=== PATIENT | female | born 1960 | race Caucasian/White ===

== ENCOUNTER 2016-06-18 07:48 | Emergency (ER) | payer OTHER ==
[~2016-06-18] VITALS: Ht 165.1 cm; Wt 86.0 kg
[2016-06-18 07:50] VITALS: BP 147/84; PULSE 98; RESP 20; TEMP 97.8; O2SAT 98
--- NOTE | 2016-06-18 08:15 | PD ---
HPI Chief Complaint: Abdominal Pain Time Seen by Provider: 08:15 Travel History International Travel<30 days: No Contact w/Intl Traveler<30days: No Traveled to known affect area: No History of Present Illness HPI 56-year-old female came to the emergency room with her with severe right upper quadrant pain that started early this morning. Patient says it has been continuous since then. Although right now she said the pain is getting little better and it is 3 out of 10. It first started it was 7 out of 10. It is underneath her right rib cage with no radiation. She has never had this pain before but she does have her gallbladder still. No history of nausea vomiting. She had a bowel movement this morning which was her usual. Vital signs were relatively stable. Patient says she has not seen a doctor in couple years and is not on any medications. [facility] Past Medical History Narrative Medical List of her past medical, surgical, social and family history was reviewed from the nursing note. Hx Anticoagulant Therapy: No Cardiovascular Problems: No Chemotherapy: No Cerebrovascular Accident: No Diabetes: No Hypertension: Yes Respiratory: No Tetanus Vaccination: > 5 Years Past Surgical History Hysterectomy: No Social History Alcohol Use: No Tobacco Use: Yes Substance Use: No Allergies-Medications (Allergen,Severity, Reaction): Coded Allergies: Bee Sting (Verified Allergy, Unknown, Swelling, 06/18/16) Comments List of her allergies reviewed from the nursing note. Reported Meds & Prescriptions Reported Meds & Active Scripts Active No Active Prescriptions or Reported Medications Narrative Medication List of her home medications reviewed from the nursing note. Review of Systems Except as stated in HPI: all other systems reviewed are Neg Physical Exam Narrative GENERAL: Awake, alert, no obvious distress SKIN: Focused skin assessment warm/dry. HEAD: Atraumatic. Normocephalic. EYES: Pupils equal and round. No scleral icterus. No injection or drainage. ENT: No nasal bleeding or discharge. Mucous membranes pink and moist. NECK: Trachea midline. No JVD. CARDIOVASCULAR: Regular rate and rhythm. No murmur appreciated. RESPIRATORY: No accessory muscle use. Clear to auscultation. Breath sounds equal bilaterally. GASTROINTESTINAL: Abdomen soft, non-tender, nondistended. Hepatic and splenic margins not palpable. MUSCULOSKELETAL: No obvious deformities. No clubbing. No cyanosis. No edema. NEUROLOGICAL: Awake and alert. No obvious cranial nerve deficits. Motor grossly within normal limits. Normal speech. PSYCHIATRIC: Appropriate mood and affect; insight and judgment normal. Data Data Last Documented VS Vital Signs Date Time Temp Pulse Resp B/P Pulse Ox O2 Delivery O2 Flow Rate FiO2 06/18/16 09:45 69 17 132/88 98 06/18/16 08:43 Room Air 06/18/16 07:50 97.8 Orders Complete Blood Count With Diff (06/18/16 08:18) Comprehensive Metabolic Panel (06/18/16 08:18) Lipase (06/18/16 08:18) Urinalysis - C+S If Indicated (06/18/16 08:18) Iv Access Insert/Monitor (06/18/16 08:18) Ecg Monitoring (06/18/16 08:18) Oximetry (06/18/16 08:18) Sodium Chloride 0.9% Flush (Ns Flush) (06/18/16 08:30) Electrocardiogram (06/18/16 08:18) Ed Poc Ultrasound (06/18/16 08:18) Ct Abd/Pel W/O Iv Contrast (06/18/16 ) Labs Laboratory Tests Test 06/18/16 06/18/16 08:34 08:35 White Blood Count 14.9 TH/MM3 Red Blood Count 5.19 MIL/MM3 Hemoglobin 14.9 GM/DL Hematocrit 43.7 % Mean Corpuscular Volume 84.1 FL Mean Corpuscular Hemoglobin 28.7 PG Mean Corpuscular Hemoglobin 34.1 % Concent Red Cell Distribution Width 14.2 % Platelet Count 358 TH/MM3 Mean Platelet Volume 8.5 FL Neutrophils (%) (Auto) 76.7 % Lymphocytes (%) (Auto) 15.1 % Monocytes (%) (Auto) 6.3 % Eosinophils (%) (Auto) 1.7 % Basophils (%) (Auto) 0.2 % Neutrophils # (Auto) 11.4 TH/MM3 Lymphocytes # (Auto) 2.3 TH/MM3 Monocytes # (Auto) 0.9 TH/MM3 Eosinophils # (Auto) 0.3 TH/MM3 Basophils # (Auto) 0.0 TH/MM3 CBC Comment DIFF FINAL Differential Comment Sodium Level 134 MEQ/L Potassium Level 3.8 MEQ/L Chloride Level 98 MEQ/L Carbon Dioxide Level 29.7 MEQ/L Anion Gap 6 MEQ/L Blood Urea Nitrogen 15 MG/DL Creatinine 0.90 MG/DL Estimat Glomerular Filtration 64 ML/MIN Rate Random Glucose 89 MG/DL Calcium Level 9.6 MG/DL Total Bilirubin 1.0 MG/DL Aspartate Amino Transf 163 U/L (AST/SGOT) Alanine Aminotransferase 99 U/L (ALT/SGPT) Alkaline Phosphatase 144 U/L Total Protein 8.0 GM/DL Albumin 4.1 GM/DL Lipase 152 U/L Urine Color YELLOW Urine Turbidity CLEAR Urine pH 6.0 Urine Specific [place] 1.007 Urine Protein NEG mg/dL Urine Glucose (UA) NEG mg/dL Urine Ketones NEG mg/dL Urine Occult Blood NEG Urine Nitrite NEG Urine Bilirubin NEG Urine Urobilinogen LESS THAN 2.0 MG/DL Urine Leukocyte Esterase NEG Urine RBC 1 /hpf Urine WBC 1 /hpf Urine Squamous Epithelial 1 /hpf Cells Urine Bacteria OCC /hpf Microscopic Urinalysis Comment CULT NOT INDICATED MDM Medical Decision Making Medical Screen Exam Complete: Yes Emergency Medical Condition: Yes Medical Record Reviewed: Yes Interpretation(s) Twelve-lead EKG was reviewed by me. Normal sinus rhythm, normal axis, nonspecific ST-T wave changes. Heart rate of 97 bpm. Differential Diagnosis Acute cholecystitis, biliary colic, abdominal pain NOS Narrative Course 9:18 AM bedside ultrasound did not show gallstones. Awaiting for the CAT scan to be done and resulted. Patient has an elevated white count and elevated liver function test. 9:[address] scan not show any signs of acute abdomen. Blood test results came back and her LFTs are elevated as well as her white count. Elevated as well as her white count. I went back and reassessed her and she said the pain is down to 1-2 at this point. I had an elaborate discussion with her and her . I let them know that in my opinion I think she might have passed a gallstone which would explain this sudden pain followed by the pain subsiding and the elevated liver function test. However since the pain is gone and patient is feeling better and comfortable discharging her home. She does not have a primary care and I have urged her to find a primary care as soon as possible. She would require a repeat blood test outpatient for repeat LFTs. She has been given instructions to come back if the symptoms worsen. Patient is completely comfortable with that plan. Procedures Procedure Narrative Emergency department right upper quadrant ultrasound was performed with patient consent. Curvilinear probe was used in the transverse and sagittal views within the right upper quadrant revealing gallbladder without obvious wall thickening, cholecystic fluid, or cholelithiasis. EKG Prior to Arrival: No Diagnosis Primary Impression: Abdominal pain Qualified Code: R10.11 - Right upper quadrant abdominal pain Additional Impression: Elevated LFTs Referrals: Primary Care Physician 1 week Additional Instructions: Please find a primary care for yourselves as soon as possible. Have your primary care ordered a repeat blood test for checking liver function tests. Do not eat or drink anything that contains fat at least for next 48 hour. Do not take medications that have Tylenol in them. Please return to the ER if the condition worsens or any other new concerns. Med/Other Pt SpecificInfo: No Change to Meds Scripts No Active Prescriptions or Reported Meds Disposition: 01 DISCHARGE HOME Condition: Stable Alexander Murphy MD Jun 18, 2016 08:15
[2016-06-18] MEDS ORDERED: SODIUM CHLORIDE 0.9% FLUSH 10 ML FLUSH IV FLUSH PRN (08:30)
[2016-06-18 08:43] VITALS: O2SAT 98
[2016-06-18 09:00] LABS: AUTOMATED NEUTROPHIL # 11.4 TH/MM3 (1.8-7.7); BASOPHIL % 0.2 % (0.0-2.0); EOSINOPHIL # 0.3 TH/MM3 (0-0.4); EOSINOPHIL % 1.7 % (0.0-4.0); HEMATOCRIT 43.7 % (35.0-46.0); HEMO FLAGS DIFF FINAL; LYMPH % 15.1 % (9.0-44.0); LYMPHOCYTE # 2.3 TH/MM3 (1.0-4.8); MEAN CELL VOLUME 84.1 FL (80.0-100.0); MEAN CORPUSCULAR HEMOGLOBIN 28.7 PG (27.0-34.0); MEAN CORPUSCULAR HGB CONC 34.1 % (32.0-36.0); MONO % 6.3 % (0.0-8.0); NEUT % 76.7 % (16.0-70.0); PLATELET COUNT 358 TH/MM3 (150-450); RED BLOOD COUNT 5.19 MIL/MM3 (4.00-5.30); RED CELL DISTRIBUTION WIDTH 14.2 % (11.6-17.2); WHITE BLOOD COUNT 14.9 TH/MM3 (4.0-11.0)
[2016-06-18 09:09] LABS: BACTERIA, URINE OCC /hpf; BLOOD, URINE NEG (NEG); GLUCOSE,URINE NEG (NEG); KETONE, URINE NEG (NEG); NITRITE,URINE NEG (NEG); SQUAMOUS EPITHELIAL CELL URINE 1 /hpf (0-5); URINE COLOR YELLOW (YELLW/STRAW)
[2016-06-18 09:10] LABS: COMMENT (UR) CULT NOT INDICATED; CULTURE IF INDICATED CULT NOT INDICATED
[2016-06-18 09:14] LABS: ANION GAP 6 MEQ/L (5-15); AST (GOT) 163 U/L (15-37); BICARBONATE 29.7 MEQ/L (21.0-32.0); BLOOD UREA NITROGEN 15 MG/DL (7-18); CHLORIDE 98 MEQ/L (98-107); GLOMERULAR FILTRATION RATE 64 ML/MIN (>89); POTASSIUM 3.8 MEQ/L (3.5-5.1); SODIUM (NA) 134 MEQ/L (136-145)
[2016-06-18 09:17] LABS: ALKALINE PHOSPHATASE 144 U/L (45-117); ALT (GPT) 99 U/L (10-53)
--- NOTE | 2016-06-18 09:22 | RADRPT ---
EXAM DATE/TIME: 06/18/2016 09:06 [facility] COMPARISON: No previous studies available for comparison. INDICATIONS : Right upper abdomen pain. ORAL CONTRAST: No oral contrast ingested. RADIATION DOSE: 14.60 CTDIvol (mGy) MEDICAL HISTORY : None SURGICAL HISTORY : None. ENCOUNTER: Initial ACUITY: 1 day PAIN SCALE: 6/10 LOCATION: Right upper quadrant TECHNIQUE: Volumetric scanning of the abdomen and pelvis was performed. Using automated exposure control and ad justment of the mA and/or kV according to patient size, radiation dose was kept as low as reasonably achievable to obtain optimal diagnostic quality images. FINDINGS: LOWER LUNGS: The visualized lower lungs are clear. LIVER: Homogeneous density without lesion. There is no dilation of the biliary tree. No calcified gallston es. SPLEEN: Normal size without lesion. PANCREAS: Within normal limits. KIDNEYS: Normal in size and shape. There is no mass, stone, or hydronephrosis. ADRENAL GLANDS: Within normal limits. VASCULAR: There is no aortic aneurysm. BOWEL/MESENTERY: The stomach, small bowel, and colon demonstrate no acute abnormality. There is no free intraperitone al air or fluid. Scattered diverticula. ABDOMINAL WALL: Within normal limits. RETROPERITONEUM: There is no lymphadenopathy. BLADDER: No wall thickening or mass. REPRODUCTIVE: Within normal limits. INGUINAL: There is no lymphadenopathy or hernia. MUSCULOSKELETAL: Within normal limits for patient age. CONCLUSION: No acute disease. Scattered diverticuli of the descending and sigmoid colon. Ainsley Gan MD on June 18, 2016 at 9:19 Board Certified Radiologist. This report was verified electronically.
[2016-06-18 09:45] VITALS: BP 132/88
--- NOTE | 2016-06-19 10:28 | EKG ---
Date Performed: 06/18/2016 Time Performed: 08:19:46 PTAGE: 56 years EKG: Sinus rhythm NORMAL ECG NO PREVIOUS TRACING DOCTOR: Cayetano Meza Interpretating Date/Time 06/19/2016 10:25:34
== END 2016-06-18 10:34 | disposition home or self-care (01) ==
LOC: NEPE 07:48
DX: R10.11 Right upper quadrant pain (principal); R79.89 Other specified abnormal findings of blood chemistry
CPT/HCPCS: 74176; 80053; 81001; 83690; 85025; 93005

== ENCOUNTER → 2017-04-24 | Outpatient (CLI) | payer OTHER ==
--- NOTE | 2017-04-24 10:41 | RADRPT ---
EXAM DATE/TIME: 04/24/2017 10:26 [facility] COMPARISON: No previous studies available for comparison. INDICATIONS : Chest pressure and tightness. MEDICAL HISTORY : History of bronchitis and pneumonia. SURGICAL HISTORY : None. ENCOUNTER: Initial ACUITY: >1 year PAIN SCORE: 8/10 LOCATION: Bilateral chest FINDINGS: PA and lateral views of the chest demonstrate the lungs to be symmetrically aerated without evidence of mass, infiltrate or effusion. The cardiomediastinal contours are unremarkable. Osseous structure s are intact. CONCLUSION: 1. No acute cardiopulmonary disease. Bobby Alvarez MD on April 24, 2017 at 10:38 Board Certified Radiologist. This report was verified electronically.
--- NOTE | 2017-04-24 10:51 | RADRPT ---
EXAM DATE/TIME: 04/24/2017 09:37 [facility] COMPARISON: No previous studies available for comparison. INDICATIONS : Abdominal Pain. MEDICAL HISTORY : Hypertension. Tobacco use. SURGICAL HISTORY : None. ENCOUNTER: Initial ACUITY: 1 week PAIN SCORE: 03/22 LOCATION: Right upper quadrant MEASUREMENTS: LIVER: 16.1 cm length COMMON DUCT: 5 mm RIGHT KIDNEY: 10.6 x 5.1 x 3.7 cm LEFT KIDNEY: 11.3 x 4.9 x 4.8 cm SPLEEN: 9.8 cm length AORTA: 1.9 cm maximal FINDINGS: LIVER: Sono dense liver without ductal dilatation. Small cyst 1.6 cm right lobe COMMON DUCT: No intraluminal mass or stone visualized. GALLBLADDER: Mobile stone within the gallbladder without intra-signs of cholecystitis. PANCREAS: The visualized portions are within normal limits. Tail is not visualized. RIGHT KIDNEY: No hydronephrosis, stone or mass. LEFT KIDNEY: No hydronephrosis, stone or mass. SPLEEN: No focal lesion. AORTA: Non aneurysmal. IVC: Within normal limits. CONCLUSION: Gallstone without inflammatory changes Normal common duct Several dense liver suggesting fatty infiltration. Tae Benedict MD FACR on April 24, 2017 at 10:47 Board Certified Radiologist. This report was verified electronically.
--- NOTE | 2017-04-25 19:17 | EKG ---
Date Performed: 04/24/2017 Time Performed: 10:55:04 PTAGE: 56 years EKG: Sinus rhythm . Normal ECG Since the prior tracing, there has been no significant change PREVIOUS TRACING : 06/18/2016 08.19 DOCTOR: Bryce Sheehan Interpretating Date/Time 04/25/2017 19:15:27
== END ==
LOC: HRAD 09:06
PROVIDERS: ATTEND Pediatrics
DX: R10.9 Unspecified abdominal pain (principal); Z13.6 Encounter for screening for cardiovascular disorders; Z87.891 Personal history of nicotine dependence
CPT/HCPCS: 71046; 76700; 93005

== ENCOUNTER 2017-04-25 12:49 | Emergency (ER) | payer OTHER ==
[~2017-04-25] VITALS: Ht 165.1 cm; Wt 90.5 kg
[2017-04-25 12:49] VITALS: BP 139/65; PULSE 99; RESP 16; TEMP 98.4; O2SAT 95
--- NOTE | 2017-04-25 13:56 | PD ---
HPI Chief Complaint: Injury Time Seen by Provider: 13:44 Travel History International Travel<30 days: No Contact w/Intl Traveler<30days: No Traveled to known affect area: No History of Present Illness HPI 56-year-old female presents for evaluation of right fifth toe pain. Prior to arrival the patient stubbed her toe on her 's walker. She has pain to the right fifth toe, aching, constant, worse with palpation. She denies any other injuries and she has no other complaints at this time. PFSH Past Medical History Hx Anticoagulant Therapy: No Cardiovascular Problems: No Chemotherapy: No Cerebrovascular Accident: No Diabetes: No Hypertension: Yes Respiratory: No Past Surgical History Hysterectomy: No Social History Alcohol Use: No Tobacco Use: Yes Substance Use: No Allergies-Medications (Allergen,Severity, Reaction): Coded Allergies: bee venom protein (honey bee) (Unverified Allergy, Unknown, Swelling, 10/25) Reported Meds & Prescriptions Reported Meds & Active Scripts Active No Active Prescriptions or Reported Medications Review of Systems Musculoskeletal: Positive: Pain Skin: Positive Other (denies open wounds) Physical Exam Narrative GENERAL: Well-developed well-nourished female in no acute distress SKIN: Warm and dry. CARDIOVASCULAR: Regular rate and rhythm. No murmur appreciated. RESPIRATORY: No accessory muscle use. Clear to auscultation. Breath sounds equal bilaterally. MUSCULOSKELETAL: Right fifth toe is tender to palpation and laterally deviated. No open wounds. NEUROLOGICAL: Awake and alert. No obvious cranial nerve deficits. Motor grossly within normal limits. Normal speech. Data Data Last Documented VS Vital Signs Date Time Temp Pulse Resp B/P (MAP) Pulse Ox O2 Delivery O2 Flow Rate FiO2 04/25/17 12:49 98.4 99 16 139/65 (89) 95 Room Air Orders Orders Foot, Complete ([id number]) (04/25/17 ) Lidocaine Pf 1% Inj (Xylocaine-Mpf 1% In (04/25/17 14:00) Toe (Min 2vws) (04/25/17 ) Splint Or Brace Apply/Monitor (04/25/17 14:08) Ed Discharge Order (04/25/17 14:39) MDM Medical Decision Making Medical Screen Exam Complete: Yes Emergency Medical Condition: Yes Medical Record Reviewed: Yes Differential Diagnosis Toe fracture, dislocation, sprain Narrative Course X-ray confirms a fracture to the proximal phalanx of the fifth right toe. After verbal consent was obtained, a digital block was performed and the fracture was reduced. Postreduction x-ray confirms improved alignment of the fracture. A postop shoe and liza tape splint was applied. Procedures Procedure Narrative Toe fracture reduction: The right first toe was prepped with Betadine. Digital block performed with 1% lidocaine. Closed reduction of the toe fracture was achieved. Patient tolerated procedure well. Diagnosis Primary Impression: Fracture of fifth toe, right, closed Referrals: Adrianna Ledesma DPM Departure Forms: Tests/Procedures, Work Release Enter return to work date: May 01, 2017 Additional Instructions: Liza tape splint and postop shoe. Tylenol or Motrin for pain. Ice the affected area several times a day 15 minutes at a time. Follow-up with a child nutrition director such as Dr. Ledesma in 1-2 weeks, call to make an appointment. Return for any emergent medical conditions. Med/Other Pt SpecificInfo: Orthopedic Instructions Scripts No Active Prescriptions or Reported Meds Disposition: 01 DISCHARGE HOME Condition: Stable Darion Rivas Apr 25, 2017 13:56
[2017-04-25] MEDS ORDERED: LIDOCAINE HCL 1% PF 30 ML VIAL INFIL ONE (14:00)
--- NOTE | 2017-04-25 14:05 | RADRPT ---
EXAM DATE/TIME: 04/25/2017 13:23 [facility] COMPARISON: No previous studies available for comparison. INDICATIONS : Right foot, fifth digit pain. Hit toe on side of walker. MEDICAL HISTORY : None. SURGICAL HISTORY : None. ENCOUNTER: Initial ACUITY: 1 day PAIN SCORE: 2/10 LOCATION: Right foot, fifth digit. FINDINGS: Three view examination of the right foot demonstrates oblique fracture through the mid and distal norma physis of the proximal phalanx of the fifth digit with half bone thickness lateral displacement of th e distal fragment. Degenerative changes are seen at the first MTP joint. Small calcaneal spur at the plantar aponeurosis.. CONCLUSION: 1. Oblique fracture through the mid and distal diaphysis of the proximal phalanx of the fifth digit w ith half bone thickness lateral displacement of the distal fragment. 2. Degenerative changes of the first MTP joint. Small calcaneal spur at the plantar aponeurosis Jeff South MD on April 25, 2017 at 14:00 Board Certified Radiologist. This report was verified electronically.
--- NOTE | 2017-04-25 14:38 | RADRPT ---
EXAM DATE/TIME: 04/25/2017 14:19 [facility] COMPARISON: FOOT RIGHT COMPLETE ([id number]), April 25, 2017, 13:23. INDICATIONS : Post reduction, 5th digit of right foot MEDICAL HISTORY : fracture dislocation 5th digit, right foot SURGICAL HISTORY : None. ENCOUNTER: Subsequent ACUITY: 1 day PAIN SCORE: 3/10 LOCATION: Right 5th toe FINDINGS: Successful reduction of the angulation involving the proximal phalangeal fracture of the fifth toe. N o residual angulation. Soft tissue swelling noted. CONCLUSION: Successful reduction of the angulation of the proximal phalangeal fracture of the fifth toe. Troy Rahman Jr., MD on April 25, 2017 at 14:34 Board Certified Radiologist. This report was verified electronically.
== END 2017-04-25 15:00 | disposition home or self-care (01) ==
LOC: NEPK 12:49
DX: S92.911A Unspecified fracture of right toe(s), initial encounter for closed fracture (principal); I10 Essential (primary) hypertension; W22.8XXA Striking against or struck by other objects, initial encounter; Z72.0 Tobacco use
CPT/HCPCS: 28515; 73630; 73660; 99283; L3260; 28475

== ENCOUNTER 2017-08-13 06:28 | Emergency (ER) | payer OTHER ==
[2017-08-13 06:32] VITALS: BP 147/79; PULSE 93; RESP 18; TEMP 98.1; O2SAT 98
[2017-08-13] MEDS ORDERED: SODIUM CHLOR 0.9% 1000 ML INJ 1,000 ML IV ONE (07:15)
[2017-08-13] MEDS ORDERED: ONDANSETRON ODT 4 MG TAB PO ONE (07:15)
[2017-08-13] MEDS ORDERED: diphenhydrAMINE HCL 50 MG/ML VIAL IV PUSH ONE (07:15)
[2017-08-13] MEDS ORDERED: KETOROLAC TROMETHAMINE 30 MG/ML (IVP) VIAL IV PUSH ONE (07:15)
[2017-08-13 07:25] LABS: AUTOMATED NEUTROPHIL # 6.3 TH/MM3 (1.8-7.7); BASOPHIL # 0.1 TH/MM3 (0-0.2); BASOPHIL % 0.6 % (0.0-2.0); EOSINOPHIL # 0.1 TH/MM3 (0-0.4); EOSINOPHIL % 1.3 % (0.0-4.0); HEMATOCRIT 42.3 % (35.0-46.0); HEMOGLOBIN 14.5 GM/DL (11.6-15.3); LYMPH % 22.5 % (9.0-44.0); LYMPHOCYTE # 2.2 TH/MM3 (1.0-4.8); MEAN CORPUSCULAR HEMOGLOBIN 28.8 PG (27.0-34.0); MEAN CORPUSCULAR HGB CONC 34.3 % (32.0-36.0); MEAN PLATELET VOLUME 7.9 FL (7.0-11.0); MONO % 11.2 % (0.0-8.0); MONOCYTE # 1.1 TH/MM3 (0-0.9); NEUT % 64.4 % (16.0-70.0); PLATELET COUNT 327 TH/MM3 (150-450); RED BLOOD COUNT 5.03 MIL/MM3 (4.00-5.30); RED CELL DISTRIBUTION WIDTH 13.4 % (11.6-17.2); WHITE BLOOD COUNT 9.8 TH/MM3 (4.0-11.0)
[2017-08-13 07:40] LABS: BICARBONATE 25.2 MEQ/L (21.0-32.0); CALCIUM 9.3 MG/DL (8.5-10.1); CREATININE 1.01 MG/DL (0.50-1.00)
--- NOTE | 2017-08-13 07:47 | PD ---
HPI Chief Complaint: Fever Time Seen by Provider: 07:00 Travel History International Travel<30 days: No Contact w/Intl Traveler<30days: No Traveled to known affect area: No History of Present Illness HPI Patient is a 57-year-old female who comes in with complaints of body aches, headache, nausea and vomiting. She says she has not been feeling well over the past week. She went to see her primary care doctor because she was having burning with urination as well as urgency and frequency. She was prescribed Bactrim. She says she has taken 4 pills, but was experiencing a lot of vomiting from them, so she has stopped taking them. She says she had a fever of 101 last night. She was taking aspirin for her symptoms, which she says did not help. She did not take anything this morning prior to coming in. She denies any abdominal pain. She says she used to have migraine headaches, but has not had one in a while. She denies any cough or shortness of breath. Severity is mild to moderate. PFSH Past Medical History Hx Anticoagulant Therapy: No Cardiovascular Problems: No Chemotherapy: No Cerebrovascular Accident: No Diabetes: No Hypertension: Yes Respiratory: No Past Surgical History Section: Yes Hysterectomy: No Social History Alcohol Use: No Tobacco Use: No Substance Use: No Allergies-Medications (Allergen,Severity, Reaction): Coded Allergies: bee venom protein (honey bee) (Unverified Allergy, Unknown, Swelling, ) Reported Meds & Prescriptions Reported Meds & Active Scripts Active No Active Prescriptions or Reported Medications Review of Systems Except as stated in HPI: all other systems reviewed are Neg General / Constitutional: Positive: Fever Eyes: No: Blurred Vision HENT: Positive: Headaches Cardiovascular: No: Chest Pain or Discomfort Respiratory: No: Cough, Shortness of Breath Gastrointestinal: Positive: Nausea, Vomiting, No: Abdominal Pain Genitourinary: Positive: Urgency, Frequency, No: Dysuria Musculoskeletal: Positive: Myalgias Skin: No Rash, No Change in Pigmentation Neurologic: No: Weakness, Dizziness Physical Exam Narrative GENERAL: Awake and alert, in no acute distress. SKIN: Focused skin assessment warm/dry. No wounds or signs of infection. HEAD: Atraumatic. Normocephalic. EYES: Pupils equal and round and reactive. No scleral icterus. Extraocular movements intact. ENT: Mucous membranes pink and moist. NECK: Trachea midline. No JVD. CARDIOVASCULAR: Regular rate and rhythm. No murmur appreciated. RESPIRATORY: No accessory muscle use. Clear to auscultation. Breath sounds equal bilaterally. GASTROINTESTINAL: Abdomen soft, non-tender, nondistended. MUSCULOSKELETAL: No obvious deformities. No clubbing. No cyanosis. No edema. NEUROLOGICAL: Awake and alert. No obvious cranial nerve deficits. Motor grossly within normal limits. Normal speech. PSYCHIATRIC: Appropriate mood and affect; insight and judgment normal. Data Data Last Documented VS Vital Signs Date Time Temp Pulse Resp B/P (MAP) Pulse Ox O2 Delivery O2 Flow Rate FiO2 08/13/17 06:32 98.1 93 18 147/79 (101) 98 Orders Orders Influenzae A/B Antigen (08/13/17 06:50) Complete Blood Count With Diff (08/13/17 06:50) Basic Metabolic Panel (Bmp) (08/13/17 06:50) Urinalysis - C+S If Indicated (08/13/17 07:13) Sodium Chlor 0.9% 1000 Ml Inj (Ns 1000 M (08/13/17 07:15) Ketorolac Inj (Toradol Inj) (08/13/17 07:15) Diphenhydramine Inj (Benadryl Inj) (08/13/17 07:15) Ondansetron Odt (Zofran Odt) (08/13/17 07:15) Urine Culture (08/13/17 08:05) Labs Laboratory Tests Test 08/13/17 07:05 08/13/17 07:15 08/13/17 08:05 Blood Urea Nitrogen 8 MG/DL Creatinine 1.01 MG/DL Random Glucose 103 MG/DL Calcium Level 9.3 MG/DL Sodium Level 135 MEQ/L Potassium Level 4.1 MEQ/L Chloride Level 99 MEQ/L Carbon Dioxide Level 25.2 MEQ/L Anion Gap 11 MEQ/L Estimat Glomerular Filtration Rate 56 ML/MIN White Blood Count 9.8 TH/MM3 Red Blood Count 5.03 MIL/MM3 Hemoglobin 14.5 GM/DL Hematocrit 42.3 % Mean Corpuscular Volume 84.0 FL Mean Corpuscular Hemoglobin 28.8 PG Mean Corpuscular Hemoglobin Concent 34.3 % Red Cell Distribution Width 13.4 % Platelet Count 327 TH/MM3 Mean Platelet Volume 7.9 FL Neutrophils (%) (Auto) 64.4 % Lymphocytes (%) (Auto) 22.5 % Monocytes (%) (Auto) 11.2 % Eosinophils (%) (Auto) 1.3 % Basophils (%) (Auto) 0.6 % Neutrophils # (Auto) 6.3 TH/MM3 Lymphocytes # (Auto) 2.2 TH/MM3 Monocytes # (Auto) 1.1 TH/MM3 Eosinophils # (Auto) 0.1 TH/MM3 Basophils # (Auto) 0.1 TH/MM3 CBC Comment DIFF FINAL Differential Comment Urine Color YELLOW Urine Turbidity HAZY Urine pH 6.5 Urine Specific [place] 1.012 Urine Protein NEG mg/dL Urine Glucose (UA) NEG mg/dL Urine Ketones NEG mg/dL Urine Occult Blood NEG Urine Nitrite NEG Urine Bilirubin NEG Urine Urobilinogen LESS THAN 2.0 MG/DL Urine Leukocyte Esterase LARGE Urine RBC 4 /hpf Urine WBC 17 /hpf Urine Squamous Epithelial Cells 7 /hpf Urine Bacteria FEW /hpf Urine Mucus FEW /lpf Microscopic Urinalysis Comment CULTURE INDICATED MDM Medical Decision Making Medical Screen Exam Complete: Yes Emergency Medical Condition: Yes Medical Record Reviewed: Yes Differential Diagnosis viral illness vs medication reaction vs UTI Narrative Course Patient is a 57 year old female who comes in complaining of body aches, headache , fever. She is afebrile in the ED. Exam shows no acute abnormalities. IV established, labs sent. Labs show no acute abnormalities. UA is positive for WBCs and leukocyte esterase. Given IVF, Toradol, Zofran, Benadryl. She is sleeping comfortably. Advised to increase her fluid intake. switched from Bactrim to Macrobid. Advised to take Tylenol or Ibuprofen as needed for pain. ADvised to follow up with her doctor. Advised to return to the ED as needed for any worsening symptoms. Diagnosis Primary Impression: Viral illness Patient Instructions: General Instructions, Urinary Tract Infection in Women ( ED), Viral Syndrome (ED) Additional Instructions: Stop taking the Bactrim. Take Macrobid instead. Increase her fluid intake. Take Tylenol or ibuprofen as needed for pain. Follow-up with your doctor. Return to the ED as needed for any worsening symptoms. Scripts Nitrofurantoin Monohydrate Macrocrystals (Macrobid) 100 Mg Capsule 100 MG PO BID for Infection for 5 Days, #10 CAP 0 Refills Prov: Bridgette Russell MD 08/13/17 Disposition: 01 DISCHARGE HOME Condition: Stable Bridgette Russell MD Aug 13, 2017 07:47
[2017-08-13 08:47] LABS: BACTERIA, URINE FEW /hpf; BILIRUBIN, URINE NEG (NEG); BLOOD, URINE NEG (NEG); GLUCOSE,URINE NEG (NEG); KETONE, URINE NEG (NEG); MUCUS URINE FEW /lpf (OCC); NITRITE,URINE NEG (NEG); PH, URINE 6.5 (5.0-8.5); SQUAMOUS EPITHELIAL CELL URINE 7 /hpf (0-5); URINE COLOR YELLOW (YELLW/STRAW); URINE LEUKOCYTE ESTERASE LARGE (NEG)
[2017-08-13] MEDS ORDERED: MACR100C2 PO (09:50)
== END 2017-08-13 10:14 | disposition home or self-care (01) ==
LOC: NEPE 06:28
DX: B34.9 Viral infection, unspecified (principal); I10 Essential (primary) hypertension
CPT/HCPCS: 80048; 81001; 85025; 87086; 87804; 96361; 96374; 96375; 99284; J1200; J1885; J7030